=== PATIENT | female | born 2000 | race Caucasian/White ===

== ENCOUNTER 2022-04-03 10:34 | Emergency (ER) | payer OTHER, SELFPAY ==
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
[2022-04-03 10:42] VITALS: BP 145/82; PULSE 99; RESP 14; TEMP 36.5; O2SAT 100
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
[2022-04-03 14:27] VITALS: BP 146/80; PULSE 92; RESP 16; O2SAT 98
== END 2022-04-03 14:28 | disposition home or self-care (01) ==
PROVIDERS: Emergency Provider General Practice
DX: S09.90XA Unspecified injury of head, initial encounter (principal); S16.1XXA Strain of muscle, fascia and tendon at neck level, initial encounter; M47.812 Spondylosis without myelopathy or radiculopathy, cervical region; M47.814 Spondylosis without myelopathy or radiculopathy, thoracic region; V43.62XA Car passenger injured in collision with other type car in traffic accident, initial encounter
CPT/HCPCS: 70450; 72125; 72128; 73030; 81025; 99284